=== PATIENT | female | born 1985 | race African-American/Black ===

== ENCOUNTER 2016-08-27 11:17 | Emergency (ER) | payer OTHER ==
[~2016-08-27] VITALS: Ht 157.5 cm; Wt 72.6 kg
[2016-08-27 12:39] LABS: ABSOLUTE NEUTROPHILS 7.7 thou/uL (1.4-8.2); BASOPHILS 0.4 % (0.0-2.0); EOSINOPHILS 0.2 % (0.0-3.0); HEMATOCRIT 41.7 % (37.0-47.0); HEMOGLOBIN 14.7 gm/dL (12.0-15.0); LYMPHOCYTES 13.4 % (24.0-44.0); MCH 29.4 pg (26.0-34.0); MCHC 35.3 g/dL (28.0-37.0); MCV 83.2 fL (80.0-100.0); MONOCYTES 5.9 % (1.0-8.0); PLATELET COUNT 214 thou/uL (150-400); POLYS 80.1 % (36.0-66.0); RBC 5.01 mil/uL (4.20-5.00); WBC 9.6 thou/uL (4.0-11.0)
[2016-08-27 12:41] LABS: MANUAL DIFF NO
[2016-08-27 12:48] LABS: CALCIUM 8.7 mg/dL (8.5-10.1); CREATININE 0.9 mg/dL (0.6-1.0); POTASSIUM 3.6 mmol/L (3.5-5.1)
[2016-08-27 14:06] LABS: URINE BILIRUBIN NEGATIVE (Negative); URINE BLOOD NEGATIVE (Negative); URINE COLOR YELLOW; URINE GLUCOSE-RANDOM* NEGATIVE (Negative); URINE KETONES NEGATIVE (Negative); URINE NITRITE NEGATIVE (Negative); URINE PROTEIN (DIPSTICK) NEGATIVE (Negative); URINE SPECIFIC GRAVITY 1.015 (1.003-1.035); URINE UROBILINOGEN 0.2 E.U./dl (0.2-1.0)
[2016-08-27 14:17] LABS: CRYSTALS None Seen /LPF (None Seen); SQUAMOUS >10 Many /LPF (0-3)
[2016-08-27 14:18] LABS: CASTS None Seen /LPF (None Seen)
[2016-08-27 14:19] LABS: BACTERIA >30 Many /HPF (None Seen); URINE RBC 0-2 Rare /HPF (0-2)
[2016-08-27] MEDS ORDERED: MACROBID 100 M100 M1 PO (15:14)
[2016-08-27 15:22] VITALS: BP 94/55
== END 2016-08-27 15:22 | disposition home or self-care (01) ==
LOC: ER 11:17
PROVIDERS: Nurse Practitioner Family
DX: G43.909 Migraine, unspecified, not intractable, without status migrainosus (principal); N39.0 Urinary tract infection, site not specified

== ENCOUNTER 2019-04-24 10:05 | Emergency (ER) | payer BC ==
[~2019-04-24] VITALS: Ht 157.5 cm; Wt 83.9 kg
[~2019-04-24 10:05] MED LIST: MACROBID 100 M100 M1 PO
[2019-04-24] MEDS ORDERED: IBU800 MG PO (10:41)
[2019-04-24] MEDS ORDERED: EXCEDRIN MIGRA1 EAC1 PO (10:41)
[2019-04-24] MEDS ORDERED: VITAMIN D50000 UNIT PO (10:42)
[2019-04-24] MEDS ORDERED: FLOMAX0.4 MG PO (10:42)
[2019-04-24] MEDS ORDERED: PEPTO-BISMOL262 M1 PO (10:43)
[2019-04-24] MEDS ORDERED: OMEPRAZOLE 20 M20 M1 PO (10:44)
[2019-04-24] MEDS ORDERED: ALKA-SELTZER H1 EAC1 PO (10:44)
[2019-04-24] MEDS ORDERED: PHENTERMINE H37.5 MG PO (10:44)
[2019-04-24 11:07] LABS: ABSOLUTE NEUTROPHILS 4.8 thou/uL (1.4-8.2); BASOPHILS 0.5 % (0.0-2.0); HEMATOCRIT 43.5 % (37.0-47.0); HEMOGLOBIN 14.6 gm/dL (12.0-15.0); LYMPHOCYTES 20.5 % (24.0-44.0); MCH 28.3 pg (26.0-34.0); MCHC 33.6 g/dL (28.0-37.0); MCV 84.2 fL (80.0-100.0); MONOCYTES 7.3 % (1.0-8.0); PLATELET COUNT 261 thou/uL (150-400); POLYS 71.7 % (36.0-66.0); RBC 5.17 mil/uL (4.20-5.00); RDW 14.6 % (10.5-14.5); WBC 6.6 thou/uL (4.0-11.0)
[2019-04-24 11:10] LABS: CREATININE 0.9 mg/dL (0.6-1.0); POTASSIUM 3.5 mmol/L (3.5-5.1)
[2019-04-24 11:16] LABS: ALBUMIN 3.9 g/dL (3.4-5.0); TOTAL BILIRUBIN 0.4 mg/dL (<0.1-1.0); TOTAL PROTEIN 7.5 g/dL (6.4-8.2)
[2019-04-24 11:27] LABS: URINE BILIRUBIN NEGATIVE (Negative); URINE BLOOD 3+ (Negative); URINE CLARITY CLEAR; URINE COLOR YELLOW; URINE GLUCOSE-RANDOM* NEGATIVE (Negative); URINE KETONES 1+ (Negative); URINE LEUKOCYTES-REFLEX NEGATIVE (Negative); URINE NITRITE-REFLEX NEGATIVE (Negative); URINE PROTEIN (DIPSTICK) NEGATIVE (Negative); URINE SPECIFIC GRAVITY 1.025 (1.005-1.035)
[2019-04-24 11:34] LABS: SQUAMOUS 4-10 Moderate /LPF (0-3)
[2019-04-24 11:35] LABS: AMORPHOUS URATES Few /LPF (None Seen); BACTERIA-REFLEX 1-9 Few /HPF (None Seen); CASTS None Seen /LPF (None Seen); URINE RBC 3-10 Few /HPF (0-2); URINE WBC-REFLEX 0-5 Rare /HPF (0-5)
[2019-04-24] MEDS ORDERED: CARAFATE1 GM PO (13:39)
[2019-04-24] MEDS ORDERED: COMPAZINE5 M1 PO (13:39)
[2019-04-24 13:59] VITALS: BP 105/59
== END 2019-04-24 14:00 | disposition home or self-care (01) ==
LOC: ER 10:05
PROVIDERS: Emergency Medicine
DX: K29.70 Gastritis, unspecified, without bleeding (principal); G43.909 Migraine, unspecified, not intractable, without status migrainosus